=== PATIENT | male | born 1950 | race Caucasian/White ===

== ENCOUNTER 2018-04-22 03:04 | Observation (INO) ==
[2018-04-22] MEDS ORDERED: Ondansetron 4 MG/2 ML VIAL IVP PRN (05:42)
[2018-04-22] MEDS ORDERED: OXYCODONE Oral CONC 10 MG/0.5 ML ORAL.SYG SL PRN (05:42)
[2018-04-22] MEDS ORDERED: Naloxone 0.4 MG/ML INJ IVP PRN (05:42)
[2018-04-22] MEDS ORDERED: Nitroglycerin 0.4 MG TAB.SUBL SL PRN (05:59)
--- NOTE | 2018-04-22 06:12 | Internal Med History&Physical ---
<Josiah Greene - Last Filed: 04/22/18 06:02> Date of Encounter: 04/22/18 Time of Encounter: 06:02 Internal Medicine - H&P: HPI Chief complaint: SOB Admitted From: Hospital to Hospital Transfer Plans for Post Hospital Care: Home History of present illness: Mr. Benoit is a 68 year old male with a PMHx of COPD, CVA, DM2, HLD, HTN, anxiety, depression, AFib, Parkinsons disease, CKD III who presents to [place] ED with a complaint of SOB x 2 days. He states pain began gradually, not after waking, and has not improved since onset. He describes the feeling as if he has to take an extra deep breath to get air. No exacerbating or relieving symptoms but he does admit to orthopnea. He has not experienced this in the past. Denies chest pain or edema. No fevers, chills, nausea, vomiting, weakness, numbness, tingling, any pain. Does admit to non productive cough which he does not have at baseline. Has a cardiac history including aortic valve replacement in 2010 in [place]. stent x2, CABG at [place], unsure when these were. last stress test "many years ago" in [place]. Last LHC maybe a year ago at [place]. Last echo 05/22/16 at [facility], EF 50% with mild diastolic dysfunction and mild pulmonary HTN. At [place], vitals wnl on 2L O2. Labs show baseline CKD III, INR low at 2.2, BNP 241, trop very mildly elevated at 0.05/0.06. EKG showed AFib with LBBB. CXR showed central right lung atelectasis/ pneumonitis. CT chest shows cardiomegaly, AVR, mildly enlarged pulmonary artery. PMHX as above PSHx: CABG, AVR Social: smokes 1 PPD, denies alcohol or drug use. Past Med Surg Social Fam HX - Past Medical History Medical history: COPD, CVA, diabetes, hyperlipidemia, hypertension, myocardial infarction Additional medical history: parkinsons Psychiatric history: anxiety, depression - Past Surgical History Surgical History: angioplasty/stent, coronary bypass (CABG), heart valve replacement, knee replacement, orthopedic, other, vasectomy, other Additional surgical history: open heart surgery with mechanical valve surgery. left shoulder surgery. right thumb and elbow surgery. left knee arthroscopy, KYPHOPLASTY, CARDIAC STENTS - Social History Smoking Status: Current every day smoker Smokeless Tobacco Status: No Alcohol use: none Drug use: none - Family History Mother Family Member Ethnicity: Non- Living Status: Still Living Hx Family Cardiac Disorders: No Hx Family Respiratory Disorders: No Hx Family Cancer: No Hx Family GI Disorders: No Hx Family Endocrine Disorder: No Hx Family Neuromuscular Disorders: No Hx Family Neurologic Disorders: No Hx Family HEENT Disorders: No Hx Family Autoimmune Disorders: No Brother Adopted: No Family Member Ethnicity: Non- Living Status: Still Living Hx Family Cardiac Disorders: Yes Hx Family Respiratory Disorders: No Hx Family Cancer: No Hx Family GI Disorders: No Hx Family Endocrine Disorder: No Hx Family Neuromuscular Disorders: No Hx Family Neurologic Disorders: No Hx Family HEENT Disorders: No Hx Family Autoimmune Disorders: No Internal Medicine - H&P: Meds Aspirin [Adult Low Dose Aspirin EC] 81 mg PO DAILY 06/10/15 [History] Atorvastatin [Lipitor] 40 mg PO QPM 06/10/15 [History] Cholecalciferol (Vitamin D3) [Vitamin D] 50,000 unit PO QWEEK 06/10/15 [History] Folic Acid 1 mg PO QAM 06/10/15 [History] Metoprolol [Lopressor] 25 mg PO BID 06/10/15 [History] Nitroglycerin [Nitrostat] 0.4 mg SL AD PRN 06/10/15 [History] Omeprazole [PriLOSEC] 20 mg PO QAM 06/10/15 [History] Potassium Chloride [K-Tab ER] 10 meq PO BID 06/10/15 [History] Sertraline [Zoloft] 100 mg PO QAM 06/10/15 [History] Warfarin [Coumadin] 5 mg PO QWEEK 06/10/15 [History] Warfarin [Coumadin] 7.5 mg PO DAILY 06/10/15 [History] Insulin Glargine [Lantus] 40 unit SQ HS 08/01/16 [History] Insulin LISPRO [Humalog] 0 units SQ AD 08/01/16 [History] Acetaminophen [Tylenol] 500 mg PO Q6HR PRN #20 tablet 01/16/17 [Rx] Carbidopa/Levodopa [Carbidopa-Levo 25-100 mg Odt] 1 each PO TID 08/06/17 [History] Lisinopril-HCTZ 20-12.5 [Prinzide 20-12.5] 1 tab PO DAILY 08/06/17 [History] Methocarbamol [Robaxin-750] 750 mg PO TID 08/30/17 [History] Allergy/AdvReac Type Severity Reaction Status Date / Time No Known Allergies Allergy Verified 09/01/17 13:18 All Systems PM: A 10-system review of systems was performed and is negative for pertinent findings except as documented above in the HPI. - Constitutional Constitutional: no anorexia, no chills, no excessive sweating, no fever(s), no weakness - Cardiovascular Cardiovascular ROS IM: dyspnea, dyspnea on exertion, orthopnea, no chest pain, no diaphoresis, no edema, no palpitations, no syncope - Respiratory Respiratory: cough, dyspnea - Gastrointestinal Gastrointestinal: no abdominal pain, no heartburn, no melena, no nausea, no vomiting - Musculoskeletal Musculoskeletal ROS IM: no muscle weakness, no myalgias, no numbness, no tingling - Integumentary Integumentary IM: no rash - Neurological Neurological ROS: no confusion, no focal weakness, no numbness, no tingling, no weakness - Constitutional Vitals: Temp Pulse Resp BP Pulse Ox 98.6 F 66 16 133/77 97 04/22/18 04:32 04/22/18 04:32 04/22/18 04:32 04/22/18 04:32 04/22/18 04:32 Exam: Gen.: Vitals noted. No acute distress. AAOx3 HEENT: PERRL/EOMI, oropharynx clear, Normocephalic, atraumatic, MMM Cardiac: Irregularly irregular, no murmur, +S1/S2, no edema Pulmonary: CTA bilaterally, no wheezes, rales or rhonchi, possible very faint crackles in right lung base. equal chest expansion Abdomen: soft, nontender, BS noted, no guarding, no rebound. MSK: ROM intact, no joint swelling noted Extremities: no BLE edema, nontender calf, no cyanosis or clubbing. resting tremor in bilateral UE Neuro: A&Ox3, moves all extremities, no focal deficits Psych: Appropriate mood and behavior - Assessment and plan (1) Dyspnea Current Visit: Yes Status: Acute Assessment and plan: - Acute dyspnea in the setting of significant heart disease, COPD - Unclear etiology at this time. Suspect that there may be a component of anxiety, however he is a high risk for cardiac events - Low suspicious for infectious cause. Some suspicion for PE, however patient is on coumadin and INR 2.2 - Currently tolerating 2L O2 via [place] - No home bronchodilators. - Patient reports most recent workup of echo 2016, stress test unknown, [facility] maybe 1 year ago. [facility] of work [place] - Troponin 0.05, trended to 0.06 - BNP 241 - Echo shows diastolic dysfunction, EF 50%, pulm HTN - PFTs in 08/26/15, no significant - CXR and CT show atelectasis vs pneumonitis, cardiomegaly. Plan - Trend troponins - Repeat Echo - Consult to cardiology, very much appreciate recommendations - Continue supplemental O2 Qualifiers: Dyspnea type: shortness of breath Qualified Code(s): R06.02 - Shortness of breath; R06.00 - Dyspnea, unspecified; R06.01 - Orthopnea (2) Subtherapeutic international normalized ratio (INR) Current Visit: Yes Status: Acute Assessment and plan: INR of 2.2 Hx of AVR goal INR 2.5-3.5 Pharmacy to dose (3) Atrial fibrillation Current Visit: Yes Status: Chronic Assessment and plan: - Per history, patient unsure - EKG shows AFib with LBBB - Rate controlled - AC on coumadin at home. INR 2.2 - Continue home BB Qualifiers: Atrial fibrillation type: paroxysmal Qualified Code(s): I48.0 - Paroxysmal atrial fibrillation (4) H/O mechanical aortic valve replacement Current Visit: Yes Status: Acute Assessment and plan: as above pharmacy to dose coumadin Repeat echo (5) CKD (chronic kidney disease), stage III Current Visit: Yes Status: Chronic Assessment and plan: - BUN/Cr of 24/.44 GFR 49 - Appears at baseline - Renally dose, avoiding nephrotoxins (6) (HFpEF) heart failure with preserved ejection fraction Current Visit: Yes Status: Chronic Assessment and plan: - Last echo 05/22/16 - EF 50%, mild diastolic dysfunction, mild pulm HTN - Does not appear fluid overloaded on exam. CXR not suggestive of pulm edema - Repeat echo - Cardiology consulted (7) COPD (chronic obstructive pulmonary disease) Current Visit: Yes Status: Chronic Assessment and plan: - Per history - Does not appear to be in acute exacerbation - Will add PRN albuterol for SOB Qualifiers: COPD type: unspecified COPD Qualified Code(s): J44.9 - Chronic obstructive pulmonary disease, unspecified (8) HTN (hypertension) Current Visit: Yes Status: Chronic Assessment and plan: - Continue home antihypertensives - Well controlled at presentation of 133/77 Qualifiers: Hypertension type: essential hypertension Qualified Code(s): I10 - Essential (primary) hypertension (9) HLD (hyperlipidemia) Current Visit: Yes Status: Chronic Assessment and plan: -Continue home statin - repeat lipid panel Qualifiers: Hyperlipidemia type: unspecified Qualified Code(s): E78.5 - Hyperlipidemia, unspecified (10) Anxiety and depression Current Visit: Yes Status: Chronic Assessment and plan: - Chronic history - May be contributing to symptoms of SOB - Given 1mg Ativan x2 in [place] with improvement of symptoms - On home zoloft. (11) Pulmonary HTN Current Visit: Yes Status: Chronic Assessment and plan: - per report on echocardiogram in 2017. Noted on CT in [place] - will repeat echocardiogram - Cardiology consulted, appreciate recommendations (12) Elevated troponin Current Visit: Yes Status: Acute Assessment and plan: as above will trend (13) CAD (coronary artery disease) Current Visit: Yes Status: Chronic Assessment and plan: as above continue home meds EKG unchanged from previous per ED report. Trending troponin Qualifiers: Coronary Disease-Associated Artery/Lesion type: bypass graft [place] vs. transplanted heart: [place] heart Associated angina: without angina Qualified Code(s): I25.810 - Atherosclerosis of coronary artery bypass graft(s) without angina pectoris (14) Diabetes Current Visit: Yes Status: Chronic Assessment and plan: Type 2 BS 158 NPO in case of stress test. q6 accuchecks, SSI Qualifiers: Diabetes mellitus type: type 2 Diabetes mellitus senior living insulin use: with senior living use Diabetes mellitus complication status: with neurologic complications Diabetes mellitus complication detail: with polyneuropathy Qualified Code(s): E11.42 - Type 2 diabetes mellitus with diabetic polyneuropathy; Z79.4 - lobsterman (current) use of insulin (15) Tobacco abuse Current Visit: Yes Status: Chronic Assessment and plan: encouraged to quit. offered nicotine patch, declined. (16) DVT prophylaxis Current Visit: Yes Status: Acute Assessment and plan: On coumadin for aortic valve replacement - Time Spent With Patient Total time spent is greater than 50% in coordination of care (as documented) at patient's floor/unit and/or counseling patient: <Phillip Arroyo - Last Filed: 04/22/18 07:44> Date of Encounter: 04/22/18 Internal Medicine - H&P: HPI History of present illness: Mr. Benoit is a 68 year old male All Systems PM: A 10-system review of systems was performed and is negative for pertinent fi ndings except as documented above in the HPI. - Constitutional Vitals: Temp Pulse Resp BP Pulse Ox 97.9 F 87 17 163/78 94 04/22/18 07:12 04/22/18 07:12 04/22/18 07:12 04/22/18 07:12 04/22/18 07:12 Internal Med - H&P Results - Labs CBC & Chem 7: 04/22/18 05:58 04/22/18 05:58 Labs: Short CBC 04/22/18 Range/Units 05:58 WBC 9.2 (4.3-11.1) K/mcL Hgb 14.7 (12.9-16.9) g/dL Hct 44.9 (37.5-50.1) % Plt Count 172 (140-400) K/mcL Neutrophils # 7.4 (1.6-8.9) K/mcL BMP 04/22/18 05:58 Sodium 137 Potassium 4.2 Chloride 101 Carbon Dioxide 27 BUN 21 Creatinine 1.27 Glucose 155 H Calcium 9.4 Cardiac Enzymes 04/22/18 Range/Units 05:58 Troponin I 0.07 H* (< 0.04) ng/mL - Time Spent With Patient Total time spent is greater than 50% in coordination of care (as documented) at patient's floor/unit and/or counseling patient: - Attending Attestation I saw and evaluated the patient. I reviewed the residents note, performed my own physical examination and agree with findings and plan as documented in the residents note. Patient seen and examined on 04/22/18. Patient presented with shortness of breath, but denies chest pain. Elevated troponin. Will continue to monitor, get echocardiogram and pharmacy dose his coumadin. Patient restless during the night, was moved to a closer room to nurses station. Patient was resting upon my arrival however, no acute distress.
[2018-04-22 06:18] LABS: Basophils % 0.2 %; Eosinophils % 0.1 %; Hematocrit 44.9 % (37.5-50.1); Hemoglobin 14.7 g/dL (12.9-16.9); Immature Granulocytes % 0.4 % (0-4); Lymphocytes # 1.1 K/mcL (0.6-4.6); Lymphocytes % 12.4 %; Mean Corpuscular HGB Conc 32.7 g/dL (31.6-35.5); Mean Corpuscular Hemoglobin 30.2 pg (28.0-33.3); Mean Corpuscular Volume 92.4 fL (83.0-100.0); Monocytes # 0.6 K/mcL (0.0-1.3); Monocytes % 6.7 %; Neutrophils # 7.4 K/mcL (1.6-8.9); Platelet Count 172 K/mcL (140-400); Red Blood Count 4.86 M/mcL (4.19-5.50); Segmented Neutrophils % 80.2 %
[2018-04-22] MEDS ORDERED: *HR* Dextrose 50 % in Water (Syg) 50 ML SYRINGE IVP PRN (06:19)
[2018-04-22] MEDS ORDERED: D5% in Water 1,000 ML IVC PRN (06:19)
[2018-04-22] MEDS ORDERED: Dextrose Gel 15 GM/37.5 ML TUBE PO PRN ×2 (06:19)
[2018-04-22 06:24] LABS: INR 2.2; Prothrombin Time 25.3 Seconds (9.4-12.1)
[2018-04-22 06:26] LABS: Activated Partial Thrombo Time 39.7 Seconds (26.0-36.0)
[2018-04-22 06:40] LABS: Estimated Average Glucose 163 mg/dl; Hemoglobin A1C 7.3 %
[2018-04-22 06:41] LABS: BUN/Creatinine Ratio 17 (6-26); Blood Urea Nitrogen 21 mg/dL (8-23); Calcium 9.4 mg/dL (8.6-10.3); Carbon Dioxide 27 mEq/L (23-29); Chloride 101 mEq/L (98-107); Chol/HDL Ratio 8.5 (0-4.9); Cholesterol 203 mg/dL (< 200); Glucose 155 mg/dL (70-105); HDL Cholesterol 24 mg/dL (40-59); Magnesium 1.6 mg/dL (1.6-2.6); Osmolality,Calculated 290 (280-300); Potassium 4.2 mEq/L (3.5-5.1); Sodium 137 mEq/L (136-145); Triglycerides 527 mg/dL (< 150); eGFR For Non-African Americans 56 (> 60)
[2018-04-22 06:49] LABS: Troponin I 0.07 ng/mL (< 0.04)
--- NOTE | 2018-04-22 06:58 | Event Note ---
Date of Encounter: 04/22/18 Time of Encounter: 06:50 Notified of troponin of 0.07, discussed with Dr Arroyo, will repeat again in six hours, repeat EKG now and nurse instructed to notify day shift hospitalist once available.
[2018-04-22] MEDS ORDERED: Carbidopa/Levodopa 25/100 TABLET PO SCH (09:00)
[2018-04-22] MEDS ORDERED: Methocarbamol 750 MG TABLET PO SCH (09:00)
[2018-04-22] MEDS ORDERED: Aspirin Enteric Coated 81 MG Tablet PO SCH (09:00)
[2018-04-22] MEDS ORDERED: Perflutren Lipid Microsphere 2 ML VIAL ONE (10:17)
[2018-04-22 10:44] VITALS: BP 148/74
[2018-04-22] MEDS ORDERED: Insulin LISPRO 300 UNITS/3 ML VIAL SQ SCH (12:00)
--- NOTE | 2018-04-22 13:00 | Discharge Summary ---
- NOTES TO OUTPATIENT PROVIDER Notes to Outpatient Provider: [facility] as pt already set up the appointments. Orders not resulted at time of discharge: Pending orders 04/22/18 06:58 EKG [ECG 12 lead ECG] [ECG] Routine 04/22/18 17:45 Troponin I Q6H Date of Encounter: 04/22/18 Time of Encounter: 12:56 - Discharge Diagnosis (1) Dyspnea Priority: Primary Status: Acute Qualifiers: Dyspnea type: shortness of breath Qualified Code(s): R06.02 - Shortness of breath; R06.00 - Dyspnea, unspecified; R06.01 - Orthopnea (2) Elevated troponin Priority: Primary Status: Acute (3) HTN (hypertension) Priority: Secondary Status: Chronic Qualifiers: Hypertension type: essential hypertension Qualified Code(s): I10 - E ssential (primary) hypertension (4) HLD (hyperlipidemia) Priority: Secondary Status: Chronic Qualifiers: Hyperlipidemia type: unspecified Qualified Code(s): E78.5 - Hyperlipidemia, unspecified (5) Anxiety and depression Priority: Secondary Status: Chronic (6) H/O mechanical aortic valve replacement Priority: Secondary Status: Chronic (7) Pulmonary HTN Priority: Secondary Status: Chronic (8) Atrial fibrillation Priority: Secondary Status: Chronic Qualifiers: Atrial fibrillation type: paroxysmal Qualified Code(s): I48.0 - Paroxysmal atrial fibrillation Hospital course: Mr. Benoit is a 68 year old male with a PMHx of COPD, CVA, DM2, HLD, HTN, anxiety, depression, AFib, Parkinsons disease, CKD III who presents to [place] ED with a complaint of SOB x 2 days. He states pain began gradually, not after waking, and has not improved since onset. He describes the feeling as if he has to take an extra deep breath to get air. No exacerbating or relieving symptoms but he does admit to orthopnea. He has not experienced this in the past. Denies chest pain or edema. No fevers, chills, nausea, vomiting, weakness, numbness, tingling, any pain. Does admit to non productive cough which he does not have at baseline. Has a cardiac history including aortic valve replacement in 2010 in [place]. stent x2, CABG at [place], unsure when these were. last stress test "many years ago" in [place]. Last LHC maybe a year ago at [place]. Last echo 05/22/16 at [facility], EF 50% with mild diastolic dysfunction and mild pulmonary HTN. At [place], vitals wnl on 2L O2. Labs show baseline CKD III, INR low at 2.2, BNP 241, trop very mildly elevated at 0.05/0.06. EKG showed AFib with LBBB. CXR showed central right lung atelectasis/ pneumonitis. CT chest shows cardiomegaly, AVR, mildly enlarged pulmonary artery. repeat troponin was 0.7, the pattern does not fit in acute CO. Pt vitals have been stable, dyspnea has improved with albuterol inhaler. He already had [facility] and [facility]. Pt will be discharged home to f/u with PCP. If any needs for further workup, this could be performed as outpatient. Discharge discussed with: patient, family Time spent discussing smoking cessation with patient: more than 10 minutes - Time Spent with Patient Total time spent providing and/or coordinating discharge services: Greater than 30 minutes - Discharge Medications Prescriptions: Albuterol Sulfate [Albuterol Inhaler] 2 puff IH [id number] PRN #1 inhaler PRN Reason: Shortness Of Breath/Wheezing Home Medications: Atorvastatin [Lipitor] 40 mg PO QPM 06/10/15 [History] Cholecalciferol (Vitamin D3) [Vitamin D3] 50,000 unit PO QWEEK 06/10/15 [History] Folic Acid 1 mg PO QAM 06/10/15 [History] Metoprolol [Lopressor] 25 mg PO BID 06/10/15 [History] Nitroglycerin [Nitrostat] 0.4 mg SL AD PRN 06/10/15 [History] Omeprazole [PriLOSEC] 20 mg PO QAM 06/10/15 [History] Potassium Chloride [K-Tab ER] 10 meq PO BID 06/10/15 [History] Sertraline [Zoloft] 100 mg PO QAM 06/10/15 [History] Warfarin [Coumadin] 5 mg PO QWEEK 06/10/15 [History] Warfarin [Coumadin] 7.5 mg PO DAILY 06/10/15 [History] Insulin Glargine [Lantus] 40 unit SQ HS 08/01/16 [History] Insulin LISPRO [Humalog] 0 units SQ AD 08/01/16 [History] Acetaminophen [Tylenol] 500 mg PO Q6HR PRN #20 tablet 01/16/17 [Rx] Lisinopril-HCTZ 20-12.5 [Prinzide 20-12.5] 1 tab PO DAILY 08/06/17 [History] Methocarbamol [Robaxin-750] 750 mg PO TID 08/30/17 [History] Albuterol Sulfate [Albuterol Inhaler] 2 puff IH [id number] PRN #1 inhaler 04/22/18 [Rx] Aspirin [Lo-Dose Aspirin EC] 81 mg PO DAILY 04/22/18 [History] Carbidopa/Levodopa [Carbidopa-Levodopa 25-100 Tab] 1 tab PO 1200 04/22/18 [History] Carbidopa/Levodopa [Carbidopa-Levodopa 25-100 Tab] 2 tab PO BID 04/22/18 [History] Allergies/Adverse Reactions: Allergy/AdvReac Type Severity Reaction Status Date / Time No Known Allergies Allergy Verified 04/22/18 12:06 Date of admission: 04/22/18 04:18 Primary care physician: Violet Meehan CNP Consults: 04/22/18 05:44 Consult to Cardiology [CONS] Routine Comment: Consulting Provider: Cardiology [facility] Reason for Consult: Chest pain equivalent, cardiac history Call Completed: No Anticipated date of discharge: 04/22/18 - Constitutional Vitals: Temp Pulse Resp BP Pulse Ox 97.9 F 73 18 148/74 94 04/22/18 10:40 04/22/18 10:40 04/22/18 10:40 04/22/18 10:40 04/22/18 10:40 General appearance: Present: cooperative, A&O X 3, answers questions appropriately Exam: Gen.: Vitals noted. No acute distress. AAOx3 HEENT: PERRL/EOMI, oropharynx clear, Normocephalic, atraumatic, MMM Cardiac: Irregularly irregular, no murmur, +S1/S2, no edema Pulmonary: CTA bilaterally, no wheezes, rales or rhonchi, possible very faint crackles in right lung base. equal chest expansion Abdomen: soft, nontender, BS noted, no guarding, no rebound. MSK: ROM intact, no joint swelling noted Extremities: no BLE edema, nontender calf, no cyanosis or clubbing. resting tremor in bilateral UE Neuro: A&Ox3, moves all extremities, no focal deficits Psych: Appropriate mood and behavior - Patient Status Disposition: Home, Self-Care Condition: Fair Functional capacity at discharge: independent ambulation Overall status at discharge: patient is progressing back to baseline - Discharge Instructions Follow Up With: Violet Meehan CNP [Primary Care Provider] - 04/24/18 2:30 pm - Diet and Activity Activity: increase activity as tolerated Diet: advance to your usual diet
[2018-04-22] MEDS ORDERED: Warfarin perPT PO PRN (18:00)
--- NOTE | 2018-04-23 15:55 | Electrocardiograph Report ---
[place] [id number] Test Date: 2018-04-22 Pat Name: Diaz Benoit Department: 113 Room: 3B11 Gender: Basketball Coach: : 1950 Requested By: Karsten Payne Order Number: [id number] Reading MD: Kvng Booth Measurements Intervals [place] Rate: 77 P: -15 NH: 194 QRS: 51 QRSD: 142 T: 183 QT: 424 QTc: 455 Interpretive Statements SINUS RHYTHM WITH OCCASIONAL SUPRAVENTRICULAR PREMATURE COMPLEXES LEFT BUNDLE BRANCH BLOCK Electronically Signed On 04-23-2018 15:54:06 EST by Kvng Booth
== END 2018-04-22 13:49 | disposition home or self-care (01) ==
LOC: 3BNU
PROVIDERS: ADMIT Family Medicine; ATTEND Family Medicine